=== PATIENT | female | born 1990 | race Caucasian/White ===

== ENCOUNTER 2018-11-08 21:53 | Emergency (ER) | payer OTHER ==
[2018-11-08 22:17] VITALS: O2SAT 99
--- NOTE | 2018-11-08 23:05 | ERPHSYRPT ---
- History of Present Illness Time Seen by Provider: 11/08/18 23:01 Source: patient Exam Limitations: no limitations Patient Subjective Stated Complaint: pt states sh woke up with red rash under her breasts and pain has been increasing since Triage Nursing Assessment: pt alert and oriented, answers questions approp. pt ambulatory with steady gait noted. respirations nonlabored with lungs cta. skin pink warm and dry, redness under bilat breasts with peeling to lt side. no drainage noted. Physician History: 28-year-old 1 para 0 morbidly obese white female arrives with complaint of erythematous rash which is painful underlying both breath symptoms since this morning. Past medical history is negative. Past surgical history cholecystectomy. Timing/Duration: today Severity: moderate Modifying Factors: Improves With: nothing Associated Symptoms: rash (erythematous rash underlying both breasts), No nausea , No vomiting, No abdominal pain, No shortness of breath, No heartburn, No diaphoresis, No cough, No chills, No chest pain, No fever, No headaches, No loss of appetite, No malaise, No syncope, No seizure, No weakness Allergies/Adverse Reactions: acetaminophen Allergy (Verified 11/08/18 22:19) diphenhydramine [From Benadryl] Allergy (Verified 11/08/18 22:19) Fish Containing Products Allergy (Verified 11/08/18 22:19) influenza virus vaccine qs 2018- (6 mos and up) [From Fluarix Quad 7812-3917 ( PF)] Allergy (Verified 11/08/18 22:19) Hx Tetanus, Diphtheria Vaccination/Date Given: Yes Hx Influenza Vaccination/Date Given: Yes Hx Pneumococcal Vaccination/Date Given: No Immunizations Up to Date: Yes - Review of Systems Constitutional: No Fever, No Chills Eyes: No Symptoms Ears, Nose, & Throat: No Symptoms Respiratory: No Cough, No Dyspnea Cardiac: No Chest Pain, No Edema, No Syncope Abdominal/Gastrointestinal: No Abdominal Pain, No Nausea, No Vomiting, No Diarrhea Genitourinary Symptoms: No Dysuria Musculoskeletal: No Back Pain, No Neck Pain Skin: Rash (erythematous rash underlying both breasts) Neurological: No Dizziness, No Focal Weakness, No Sensory Changes Psychological: No Symptoms Endocrine: No Symptoms All Other Systems: Reviewed and Negative - Past Medical History Pertinent Past Medical History: No - Past Surgical History Past Surgical History: Yes Neuro Surgical History: No Pertinent History Gastrointestinal: Cholecystectomy - Social History Smoking Status: Never smoker Exposure to second hand smoke: No Drug Use: none Patient Lives Alone: No - Female History Hx Now: Yes Expected Date of Delivery: 01/21/19 - Nursing Vital Signs Nursing Vital Signs: Initial Vital Signs Temperature 97.6 F 11/08/18 22:04 Pulse Rate 113 H 11/08/18 22:04 Respiratory Rate 18 11/08/18 22:04 Blood Pressure 117/74 11/08/18 22:04 O2 Sat by Pulse Oximetry 99 11/08/18 22:04 Pain Scale Pain Intensity 4 - Physical Exam General Appearance: no apparent distress, alert Eye Exam: PERRL/EOMI (Will have any pharmacie), eyes nml inspection Ears, Nose, Throat Exam: normal ENT inspection, TMs normal, pharynx normal, moist mucous membranes Neck Exam: normal inspection, non-tender, supple, full range of motion Respiratory Exam: normal breath sounds, lungs clear, No respiratory distress Cardiovascular Exam: regular rate/rhythm, normal heart sounds, normal peripheral pulses Gastrointestinal/Abdomen Exam: soft (were noted to have an ov), normal bowel sounds, No tenderness, No mass Back Exam: normal inspection, normal range of motion, No CVA tenderness, No vertebral tenderness Extremity Exam: normal inspection, normal range of motion, pelvis stable Neurologic Exam: alert, oriented x 3, cooperative, normal mood/affect, nml cerebellar function, nml station & gait, sensation nml, No motor deficits Skin Exam: other (erythematous rash underlying both breasts) SpO2 Interpretation: normal (99%) SpO2: 99 Oxygen Delivery: Room Air - Course Nursing assessment & vital signs reviewed: Yes Ordered Tests: Active Orders 24 hr Category Date Time Status Heart Tones-ED STAT Care 11/08/18 22:56 Active - Progress Progress: improved Progress Note: 11/08/18 23:03 28-year-old white female 1 para 0 arrives with complaint of an erythematous rash underlying both breasts symptoms since today. She states the rash is painful. She denies any other complaints she denies any history of diabetes. Patient is 29 weeks estimated gestational age. Patient appears be stable vitals are stable she states she is feeling movement. Will have nurse is do heart tones. Patient will need to use Monistat-Derm cream to the area twice a day for 7 days. She is to follow-up with her family doctor/[facility] physician if symptoms are worse no better in 24-48 hours or persist longer than 72 hours. She is to return for acute distress or for severe symptoms. 11/08/18 23:19 heart tones checked by nurse [id number] - Departure Time of Disposition: 23:08 Departure Disposition: Home Clinical Impression: Nallely albicans infection Condition: Fair Critical Care Time: No Referrals: ALDAIR CASTRO [Primary Care Provider] - Additional Instructions: Return home. Monistat-Derm cream apply to area twice a day for 7 days. Follow-up with your [facility]/family physician. Call tomorrow if not improving. Return for acute distress or for severe symptoms.
[2018-11-08 23:27] VITALS: BP 108/62; PULSE 102
== END 2018-11-08 23:25 | disposition home or self-care (01) ==
LOC: ED 21:53
DX: O98.813 Other maternal infectious and parasitic diseases complicating pregnancy, third trimester (principal); Z3A.29 29 weeks gestation of pregnancy
CPT/HCPCS: 99283

== ENCOUNTER 2020-06-06 20:26 | Emergency (ER) | payer OTHER ==
[2020-06-06] MEDS ORDERED: TORAdol 30 mg Injection IM ONE (20:47)
[2020-06-06 20:48] VITALS: O2SAT 98
[2020-06-06] MEDS ORDERED: Rocephin 1000 MG INJ IM ONE (20:48)
[2020-06-06] MEDS ORDERED: Rocephin 1000 MG INJ ONE (20:51)
[2020-06-06] MEDS ORDERED: XYLOCAINE 1% HCL 20 ML MDV ONE (20:51)
[2020-06-06] MEDS ORDERED: TORAdol 30 mg Injection ONE (20:51)
--- NOTE | 2020-06-06 20:54 | ERPHSYRPT ---
- History of Present Illness Time Seen by Provider: 06/06/20 20:31 Source: patient Exam Limitations: no limitations Patient Subjective Stated Complaint: "I have an infected tooth and the pain is just unbearable." Per pt, she has a dentist appointment set for . Triage Nursing Assessment: Pt presented alert et oriented and crying. Pt reported having two infected teeth and currently on penicillin. Pt reported severe pain to the upper left jaw. Pt described the pain as constant throbbing with intermittent increase in severity. Pt with noted abscess to the upper left molar and foul smelling exudate. Pupils 3mm brisk reaction. Oral mucosa pink/moist. Neck supple non-tender without palpable lymphadenopathy. Tenderness noted to palpation of the left zygomatic arch. Pt denied nausea/vomiting/diarrhea. Radial pulses equal bilateral. Physician History: 29 yo wf w dental pain x 1wk. Pain is 10 on scale. She was seen in UC 2 days ago and started on PCN. Timing/Duration: gradual onset Severity: severe ENT Location: dental Prearrival Treatment: prescription meds Modifying Factors: Improves With: nothing Associated Symptoms: facial pain/swelling, jaw pain, tooth pain, voice change, No ear pain (R), No ear pain (L), No cough, No fever, No chills, No change in hearing, No dizziness, No drooling, No ear drainage, No headache, No hearing loss, No malaise, No motion sickness, No nasal congestion/drainage, No epistaxis, No nasal foreign body, No neck pain, No poor fluid intake, No poor solids intake, No ringing of ears, No swollen glands, No sinus infection, No sore throat, No difficulty swallowing Allergies/Adverse Reactions: acetaminophen Allergy (Verified 06/06/20 20:30) diphenhydramine [From Benadryl] Allergy (Verified 06/06/20 20:30) Fish Containing Products Allergy (Verified 06/06/20 20:30) influenza virus vaccine qs 2018- (6 mos and up) [From Fluarix Quad 7762-6408 (PF)] Allergy (Verified 06/06/20 20:30) Home Medications: Buspirone HCl [Buspar] 1 tab PO DAILY 06/06/20 [History] Cholecalciferol (Vitamin D3) [Vitamin D3] 1 cap PO DAILY 06/06/20 [History] Simvastatin 1 tab PO DAILY 06/06/20 [History] Hx Tetanus, Diphtheria Vaccination/Date Given: No Hx Influenza Vaccination/Date Given: Yes Hx Pneumococcal Vaccination/Date Given: No Travel Risk - International Travel Have you traveled outside of the country in past 3 weeks: No - Coronavirus Screening Are you exhibiting any of the following symptoms?: No Close contact with a COVID-19 positive Pt in past 14-21 Days: No - Review of Systems Constitutional: No Symptoms Eyes: No Symptoms Respiratory: No Symptoms Cardiac: No Symptoms Abdominal/Gastrointestinal: No Symptoms Genitourinary Symptoms: No Symptoms Musculoskeletal: No Symptoms Skin: No Symptoms Neurological: No Symptoms Psychological: No Symptoms Endocrine: No Symptoms Hematologic/Lymphatic: No Symptoms Immunological/Allergic: No Symptoms - Past Medical History Pertinent Past Medical History: Yes Psycho-Social History: Anxiety, Depression - Past Surgical History Past Surgical History: Yes Neuro Surgical History: No Pertinent History Cardiac: No Pertinent History Respiratory: No Pertinent History Gastrointestinal: Cholecystectomy Genitourinary: No Pertinent History Musculoskeletal: No Pertinent History Female Surgical History: No Pertinent History - Social History Smoking Status: Current some day smoker Exposure to second hand smoke: No Drug Use: none Patient Lives Alone: No Significant Family History: no pertinent family hx - Female History Hx Last Menstrual Period: 05/30/20 Hx Now: No - Nursing Vital Signs Nursing Vital Signs: Initial Vital Signs Temperature 98.8 F 06/06/20 20:26 Pulse Rate 98 H 06/06/20 20:26 Respiratory Rate 20 06/06/20 20:26 Blood Pressure 150/115 06/06/20 20:26 O2 Sat by Pulse Oximetry 98 06/06/20 20:26 Pain Scale Pain Intensity 4 - Physical Exam General Appearance: no apparent distress (Pain) Eye Exam: bilateral eye: normal inspection, PERRL, EOMI Ear Exam: bilateral ear: auricle normal, canal normal, TM normal Nasal Exam: normal inspection Throat Exam: pharynx normal, dental tenderness (L superior 2nd molar and R inferior 2nd molar TTP/3rd molars on both sides impacted) Neck Exam: normal inspection, non-tender, supple, full range of motion, trachea midline Cardiovascular/Respiratory Exam: normal breath sounds, regular rate/rhythm, heart sounds normal Neurologic Exam: alert, oriented x 3, cooperative, normal mood/affect, sensation nml Skin Exam: normal color, warm, dry SpO2 Interpretation: normal SpO2: 98 O2 Delivery: Room Air - Course Nursing assessment & vital signs reviewed: Yes Ordered Tests: Medication Summary Discontinued Medications Generic Name Dose Route Start Last Admin Trade Name Moises PRN Reason Stop Dose Admin Ceftriaxone Sodium 1,000 mg 06/06/20 20:48 06/06/20 20:54 Rocephin 1000 Mg Inj IM 06/06/20 20:49 1,000 mg STAT ONE Administration Ceftriaxone Sodium Confirm 06/06/20 20:51 Rocephin 1000 Mg Inj Administered 06/06/20 20:52 Dose 1,000 mg .ROUTE .STK-MED ONE Ketorolac Tromethamine 60 mg 06/06/20 20:47 06/06/20 20:53 Toradol 30 Mg Injection IM 06/06/20 20:48 60 mg STAT ONE Administration Ketorolac Tromethamine Confirm 06/06/20 20:51 Toradol 30 Mg Injection Administered 06/06/20 20:52 Dose 60 mg .ROUTE .STK-MED ONE Lidocaine HCl Confirm 06/06/20 20:51 Xylocaine 1% Hcl 20 Ml Mdv Administered 06/06/20 20:52 Dose 3 ml .ROUTE .STK-MED ONE - Progress Progress: improved Progress Note: 06/06/20 20:53 60mg IM toradol/1gm IM rocephin Counseled pt/family regarding: diagnosis, need for follow-up - Departure Departure Disposition: Home Clinical Impression: Pain, dental Condition: Stable Critical Care Time: No Referrals: ALDAIR CASTRO [Primary Care Provider] - Instructions: Tooth Abscess (DC), Dental Pain (DC) Additional Instructions: Follow up with dentist [facility] Vicoprofen as needed for pain Continue with penicillin Prescriptions: Hydrocodon/Ibupr 7.5mg/200mg [Vicoprofen 7.5mg/200mg Tablet] 1 tab PO Q4- 6HPRN PRN #6 tablet MDD 4 tabs PRN Reason: Pain
[2020-06-06 21:30] VITALS: BP 148/88; PULSE 90
== END 2020-06-06 21:28 | disposition home or self-care (01) ==
LOC: ED 20:26
DX: K08.89 Other specified disorders of teeth and supporting structures (principal)
CPT/HCPCS: 96372; 99284; J0696; J1885

== ENCOUNTER 2020-06-19 13:05 | Emergency (ER) | payer OTHER ==
[2020-06-19 13:36] VITALS: BP 139/78; PULSE 93; O2SAT 99
--- NOTE | 2020-06-19 13:41 | ERPHSYRPT ---
- History of Present Illness Time Seen by Provider: 06/19/20 13:37 Source: patient Exam Limitations: no limitations Patient Subjective Stated Complaint: toothache on upper R side Triage Nursing Assessment: pt to ED c/o r upper tooth ache and infection in teeth. has been seen in ED and at dentist for same, was taking abx with full relief, now has run out and pain has returned. pain is intermittent, now 0/10 pain. some swelling noted to R side. no diff breathing or swolllowing reported. Physician History: toothache on upper R side for 2 weeks,Scheduled for oral surgery on jun 29 /o r upper tooth ache and infection in teeth. has been seen in ED and at dentist for same, was taking abx with full relief, now has run out and pain has returned. pain is intermittent, now 0/10 pain. some swelling noted to R side. no diff breathing or swolllowing reported. Timing/Duration: week(s) Severity: moderate Associated Symptoms: denies symptoms Allergies/Adverse Reactions: acetaminophen Allergy (Verified 06/06/20 20:30) diphenhydramine [From Benadryl] Allergy (Verified 06/06/20 20:30) Fish Containing Products Allergy (Verified 06/06/20 20:30) influenza virus vaccine qs 2018- (6 mos and up) [From Fluarix Quad 8739-6295 (PF)] Allergy (Verified 06/06/20 20:30) Home Medications: Buspirone HCl [Buspar] 1 tab PO DAILY 06/06/20 [History] Cholecalciferol (Vitamin D3) [Vitamin D3] 1 cap PO DAILY 06/06/20 [History] Simvastatin 1 tab PO DAILY 06/06/20 [History] Hx Tetanus, Diphtheria Vaccination/Date Given: No (unknown) Hx Influenza Vaccination/Date Given: Yes Hx Pneumococcal Vaccination/Date Given: No Travel Risk - International Travel Have you traveled outside of the country in past 3 weeks: No - Coronavirus Screening Are you exhibiting any of the following symptoms?: No Close contact with a COVID-19 positive Pt in past 14-21 Days: No - Review of Systems Constitutional: No Symptoms Eyes: No Symptoms Ears, Nose, & Throat: Mouth Swelling, Loose Teeth Respiratory: No Symptoms Cardiac: No Symptoms Abdominal/Gastrointestinal: No Symptoms Genitourinary Symptoms: No Symptoms Musculoskeletal: No Symptoms - Past Medical History Pertinent Past Medical History: Yes Psycho-Social History: Anxiety, Depression - Past Surgical History Past Surgical History: Yes Neuro Surgical History: No Pertinent History Cardiac: No Pertinent History Respiratory: No Pertinent History Gastrointestinal: Cholecystectomy Genitourinary: No Pertinent History Musculoskeletal: No Pertinent History Female Surgical History: No Pertinent History - Social History Smoking Status: Current some day smoker Exposure to second hand smoke: No Drug Use: none Patient Lives Alone: No Significant Family History: no pertinent family hx - Female History Hx Now: No - Nursing Vital Signs Nursing Vital Signs: Initial Vital Signs Temperature 98.1 F 06/19/20 13:30 Pulse Rate 93 H 06/19/20 13:30 Respiratory Rate 17 06/19/20 13:30 Blood Pressure 139/78 06/19/20 13:30 O2 Sat by Pulse Oximetry 99 06/19/20 13:30 Pain Scale Pain Intensity 0 - Physical Exam General Appearance: no apparent distress Eye Exam: PERRL/EOMI Ears, Nose, Throat Exam: normal ENT inspection, other (tooth abscess) Neck Exam: normal inspection Respiratory Exam: normal breath sounds Cardiovascular Exam: regular rate/rhythm Gastrointestinal/Abdomen Exam: soft SpO2: 99 - Course Nursing assessment & vital signs reviewed: Yes - Progress Progress: pain not gone completely Counseled pt/family regarding: diagnosis, need for follow-up (with dentist) - Departure Departure Disposition: Home Clinical Impression: Dental abscess Condition: Good Critical Care Time: No Referrals: ALDAIR CASTRO [Primary Care Provider] - (follow up with Dentist EDMOND) Instructions: Tooth Abscess (DC), Tooth Decay, Adult (DC), Dental Pain (DC) Prescriptions: Cephalexin Mh 500 mg [Keflex 500 mg] 500 mg PO Q6H #40 capsule Naproxen 375 mg [Naprosyn 375 mg] 375 mg PO Q8H #30 tablet
== END 2020-06-19 13:54 | disposition home or self-care (01) ==
LOC: ED 13:05
DX: K04.7 Periapical abscess without sinus (principal)
CPT/HCPCS: 99283

== ENCOUNTER 2022-10-06 11:47 | Emergency (ER) | payer OTHER ==
[2022-10-06] MEDS ORDERED: ZOFRAN ODT 4 MG PO ONE (12:25)
--- NOTE | 2022-10-06 12:25 | ERPHSYRPT ---
- History of Present Illness Time Seen by Provider: 10/06/22 12:20 Source: patient, family Exam Limitations: no limitations Physician History: Pt sent from [facility] today. Feeling weak and having aching myalgias and fever today of 100.7. Nausea. No vomiting. chest clear. Ht regular without murmur. no rash. Abd soft nontender without peritineal signs or masses. Not SOBreath. Neuro exam normal fundi benign. TM with fluid bilaterally and few nodes - no meningismis. Pharynx with erythema. swallowing in ER OK. Timing/Duration: today Cough Quality/Degree: mild, dry cough Possible Cause: no prior episodes Modifying Factors: Improves With: nothing Associated Symptoms: fever Allergies/Adverse Reactions: acetaminophen Allergy (Verified 06/19/20 13:37) ciprofloxacin [From Cipro] Allergy (Verified 10/06/22 12:27) diphenhydramine [From Benadryl] Allergy (Verified 06/19/20 13:37) Fish Containing Products Allergy (Verified 06/19/20 13:37) influenza virus vaccine qs 2018- (6 mos and up) [From Fluarix Quad 2756-0039 (PF)] Allergy (Verified 06/19/20 13:37) Home Medications: Buspirone HCl [Buspar] 1 tab PO DAILY 06/06/20 [History] Cholecalciferol (Vitamin D3) [Vitamin D3] 1 cap PO DAILY 06/06/20 [History] Simvastatin 1 tab PO DAILY 06/06/20 [History] Hx Tetanus, Diphtheria Vaccination/Date Given: No (unknown) Hx Influenza Vaccination/Date Given: Yes Hx Pneumococcal Vaccination/Date Given: No - Review of Systems Constitutional: Fever, No Chills Eyes: No Symptoms Ears, Nose, & Throat: Ear Pain Respiratory: Cough, No Dyspnea, No Stridor, No Wheezing Cardiac: No Chest Pain, No Edema, No Syncope Abdominal/Gastrointestinal: Nausea, No Abdominal Pain, No Vomiting, No Diarrhea Genitourinary Symptoms: No Dysuria Musculoskeletal: No Back Pain, No Neck Pain Skin: No Symptoms, No Rash Neurological: No Dizziness, No Focal Weakness, No Sensory Changes Psychological: No Symptoms Endocrine: No Symptoms Hematologic/Lymphatic: No Symptoms Immunological/Allergic: No Symptoms All Other Systems: Reviewed and Negative - Past Medical History Pertinent Past Medical History: Yes Psycho-Social History: Anxiety, Depression - Past Surgical History Past Surgical History: Yes Neuro Surgical History: No Pertinent History Cardiac: No Pertinent History Respiratory: No Pertinent History Gastrointestinal: Cholecystectomy Genitourinary: No Pertinent History Musculoskeletal: No Pertinent History Female Surgical History: No Pertinent History - Social History Smoking Status: Current some day smoker Exposure to second hand smoke: No Drug Use: none Patient Lives Alone: No Significant Family History: no pertinent family hx - Nursing Vital Signs Nursing Vital Signs: Initial Vital Signs Temperature 100.7 F 10/06/22 12:27 Pulse Rate 129 H 10/06/22 12:27 Respiratory Rate 20 10/06/22 12:27 Blood Pressure 128/82 10/06/22 12:27 O2 Sat by Pulse Oximetry 97 10/06/22 12:27 Pain Scale Pain Intensity 5 - Physical Exam General Appearance: no apparent distress, alert Eye Exam: PERRL/EOMI, eyes nml inspection Ears, Nose, Throat Exam: moist mucous membranes, TM abnormal (R), TM abnormal (L), pharyngeal erythema Neck Exam: normal inspection, non-tender, supple, full range of motion, lymphadenopathy, No meningismus, No Brudzinski, No Kernig's Respiratory Exam: normal breath sounds, lungs clear, No respiratory distress, No accessory muscle use, No rhonchi, No wheezing, No stridor Cardiovascular Exam: regular rate/rhythm, normal heart sounds Gastrointestinal/Abdomen Exam: soft, No tenderness Pelvic Exam: deferred Rectal Exam: deferred Back Exam: normal inspection, No CVA tenderness, No vertebral tenderness Extremity Exam: normal inspection, normal range of motion Neurologic Exam: alert, oriented x 3, cooperative, normal mood/affect, sensation nml, No motor deficits Skin Exam: normal color, warm, dry, No rash Lymphatic Exam: No adenopathy SpO2 Interpretation: normal SpO2: 98 O2 Delivery: Room Air - Course Nursing assessment & vital signs reviewed: Yes Ordered Tests: Active Orders 24 hr Category Date Time Status PO Fluid Challenge STAT Care 10/06/22 12:26 Active Medication Summary Discontinued Medications Generic Name Dose Route Start Last Admin Trade Name Freq PRN Reason Stop Dose Admin Amoxicillin 500 mg 10/06/22 13:00 10/06/22 13:19 Amoxicillin Trihydrate 500 Mg Capsule PO 10/06/22 13:01 500 mg STAT ONE Administration Amoxicillin Confirm 10/06/22 13:18 Amoxicillin Trihydrate 500 Mg Capsule Administered 10/06/22 13:19 Dose 500 mg .ROUTE .STK-MED ONE Ibuprofen 400 mg 10/06/22 13:17 10/06/22 13:19 Ibuprofen 400 Mg Tablet PO 10/06/22 13:18 400 mg STAT ONE Administration Ibuprofen Confirm 10/06/22 13:18 Ibuprofen 400 Mg Tablet Administered 10/06/22 13:19 Dose 400 mg .ROUTE .STK-MED ONE Ondansetron HCl 4 mg 10/06/22 12:25 10/06/22 12:34 Zofran 4 Mg/Udtablet Orally Disintegrating PO 10/06/22 12:26 4 mg STAT ONE Administration Ondansetron HCl Confirm 10/06/22 12:33 Zofran 4 Mg/Udtablet Orally Disintegrating Administered 10/06/22 12:34 Dose 4 mg .ROUTE .STK-MED ONE Lab/Rad Data: Laboratory Results 10/06/22 Range/Units 12:05 Influenza Type A Ag NEGATIVE (NEGATIVE) Influenza Type B Ag NEGATIVE (NEGATIVE) RSV (PCR) NEGATIVE (Negative) SARS-CoV-2 (PCR) POSITIVE A (NEGATIVE) - Progress Progress: improved, re-examined Air Movement: good Progress Note: 10/06/22 13:58 discussed with pt and family and she feels better to go home and will return if not improving. 10/06/22 13:59 HR now in 90s. Blood Culture(s) Obtained: No Antibiotics given: No Counseled pt/family regarding: lab results, diagnosis, need for follow-up - Departure Departure Disposition: Home Clinical Impression: COVID-19 Condition: Good Critical Care Time: No Referrals: ALDAIR CASTRO [Primary Care Provider] - Follow up/PCP as directed Instructions: COVID-19 (DC) Additional Instructions: you have Covid 19 and will need to self-quarantine until resolved. drink plenty of fluids and rest. Follow-up with your Dr. There are increased risks for further complications , such as blood clots or respiratory problems , so return meantime if not improving, short of breath, vomiting, or other concerns. Prescriptions: Ondansetron ODT 4 MG [Zofran Odt 4 mg] 4 mg PO Q6H PRN PRN #7 tablet PRN Reason: Nausea
[2022-10-06 12:32] VITALS: O2SAT 98
[2022-10-06] MEDS ORDERED: ZOFRAN ODT 4 MG ONE (12:33)
[2022-10-06 12:52] LABS: INFLUENZA A NEGATIVE (NEGATIVE); INFLUENZA B NEGATIVE (NEGATIVE); RESPIRATORY SYNCTIAL VIRUS NEGATIVE (Negative)
[2022-10-06] MEDS ORDERED: AMOXIL 500 MG PO ONE (13:00)
[2022-10-06] MEDS ORDERED: MOTRIN 400 MG PO ONE (13:17)
[2022-10-06] MEDS ORDERED: AMOXIL 500 MG ONE (13:18)
[2022-10-06] MEDS ORDERED: MOTRIN 400 MG ONE (13:18)
[2022-10-06 13:20] LABS: SARS-CoV-2 Xpert Express POSITIVE (NEGATIVE)
[2022-10-06 13:58] VITALS: BP 135/82; PULSE 110
== END 2022-10-06 14:15 | disposition home or self-care (01) ==
LOC: ED 11:47
DX: U07.1 COVID-19 (principal); R50.9 Fever, unspecified; R53.1 Weakness; M79.10 Myalgia, unspecified site; R11.0 Nausea; Z79.899 Other long term (current) drug therapy; Z72.0 Tobacco use
CPT/HCPCS: 0241U; 99283; Q0162; A9270-GY

== ENCOUNTER 2025-01-19 15:57 | Emergency (ER) | payer OTHER ==
--- NOTE | 2025-01-19 16:01 | ERPHSYRPT ---
- History of Present Illness Time Seen by Provider: 01/19/25 16:01 Source: patient, family Exam Limitations: no limitations Physician History: This is a 34-year-old morbidly obese white female patient arrives by private vehicle with a complaint of fatigue, weakness and fever as well as muscle aches and pains intermittently for the last 2 days. Patient had a low-grade fever today so she took ibuprofen. Patient states she is allergic to acetaminophen which gives her a rash. Patient's son has similar symptoms. Patient has a history of anxiety, hyperlipidemia and depression. She states she also has some left ear pressure. Timing/Duration: day(s) (Last couple of days) Severity: mild Associated Symptoms: cough, weakness, No vomiting, No abdominal pain, No shortness of breath, No chest pain Allergies/Adverse Reactions: acetaminophen Allergy (Verified 06/19/20 13:37) ciprofloxacin [From Cipro] Allergy (Verified 10/06/22 12:27) diphenhydramine [From Benadryl] Allergy (Verified 06/19/20 13:37) Fish Containing Products Allergy (Verified 06/19/20 13:37) influenza virus vaccine qs 2018- (6 mos and up) [From Fluarix Quad [id number] (PF)] Allergy (Verified 06/19/20 13:37) Home Medications: Buspirone HCl [Buspar] 1 tab PO DAILY 06/06/20 [History] Cholecalciferol (Vitamin D3) [Vitamin D3] 1 cap PO DAILY 06/06/20 [History] Simvastatin 1 tab PO DAILY 06/06/20 [History] Hx Tetanus, Diphtheria Vaccination/Date Given: No (unknown) Hx Influenza Vaccination/Date Given: Yes Hx Pneumococcal Vaccination/Date Given: No Travel Risk - International Travel Have you traveled outside of the country in past 3 weeks: No - Emerging Infectious Disease Are you exhibiting symptoms associated with any current EIDs: No - Review of Systems Constitutional: Fever, Weakness Eyes: No Symptoms Ears, Nose, & Throat: Ear Pain (Left ear ache that is mild) Respiratory: No Symptoms, Cough Cardiac: No Symptoms Abdominal/Gastrointestinal: Nausea, No Abdominal Pain, No Vomiting, No Diarrhea, No Constipation, No Appetite Changes Genitourinary Symptoms: No Symptoms Musculoskeletal: No Symptoms Skin: No Symptoms Neurological: No Symptoms Psychological: No Symptoms Endocrine: No Symptoms Hematologic/Lymphatic: No Symptoms Immunological/Allergic: No Symptoms All Other Systems: Reviewed and Negative - Past Medical History Pertinent Past Medical History: Yes Psycho-Social History: Anxiety, Depression - Past Surgical History Past Surgical History: Yes Neuro Surgical History: No Pertinent History Cardiac: No Pertinent History Respiratory: No Pertinent History Gastrointestinal: Cholecystectomy Genitourinary: No Pertinent History Musculoskeletal: No Pertinent History Female Surgical History: No Pertinent History Significant Family History: no pertinent family hx - Social History Smoking Status: Current some day smoker Exposure to second hand smoke: No Drug Use: none Patient Lives Alone: No - Nursing Vital Signs Nursing Vital Signs: Initial Vital Signs Temperature 99.3 F 01/19/25 16:11 Pulse Rate 120 H 01/19/25 16:11 Respiratory Rate 22 01/19/25 16:11 Blood Pressure 126/95 01/19/25 16:11 O2 Sat by Pulse Oximetry 96 01/19/25 16:11 Pain Scale Pain Intensity 0 - Physical Exam General Appearance: no apparent distress, alert, anxiety, obese Eye Exam: PERRL/EOMI, eyes nml inspection Ears, Nose, Throat Exam: pharynx normal, moist mucous membranes, other (Left tympanic membrane is slightly bulging but not red and not cloudy) Neck Exam: normal inspection, non-tender, supple, full range of motion Respiratory Exam: normal breath sounds, lungs clear, airway intact, No chest tenderness, No respiratory distress Cardiovascular Exam: tachycardia Gastrointestinal/Abdomen Exam: soft, normal bowel sounds, No tenderness Pelvic Exam: not done Rectal Exam: not done Back Exam: normal inspection, normal range of motion, No CVA tenderness, No vertebral tenderness Extremity Exam: normal inspection, normal range of motion, pelvis stable Neurologic Exam: alert, oriented x 3, cooperative, brattice builder II-XII nml as tested, nml cerebellar function, nml station & gait, sensation nml Skin Exam: normal color, warm, dry Lymphatic Exam: No adenopathy SpO2 Interpretation: normal O2 Delivery: Room Air - Course Nursing assessment & vital signs reviewed: Yes Ordered Tests: Medication Summary Discontinued Medications Generic Name Dose Route Start Last Admin Trade Name Freq PRN Reason Stop Dose Admin Ondansetron HCl 4 mg 01/19/25 17:33 Zofran 4 Mg/Udtablet Orally Disintegrating PO 01/19/25 17:34 STAT ONE Lab/Rad Data: Laboratory Results 01/19/25 Range/Units 16:32 Influenza Type A Ag POSITIVE A (NEGATIVE) Influenza Type B Ag NEGATIVE (NEGATIVE) RSV (PCR) NEGATIVE (NEGATIVE) SARS-CoV-2 (PCR) NEGATIVE (NEGATIVE) - Progress Progress: unchanged, re-examined Progress Note: 01/19/25 17:38 My medical decision making of the assignment of low complexity to this patient's medical issue is based on review of the patient's past medical history, reviewed the patient's medication list, reviewed patient drug allergy list, history present illness and physical findings on examination. The workup in this patient includes viral swabs and group A strep test. Differential diagnosis includes but is not limited to viral illness, group A strep pharyngitis, left otitis media Counseled pt/family regarding: lab results, diagnosis, need for follow-up Medical Desision Making - Diagnostic Testing Diagnostic test were ordered, analyzed, and reviewed by me: Yes - Risk of complications Low Risk: Low risk of morbidity from additional dx testing or treatment - Departure Departure Disposition: Home Clinical Impression: Influenza A H1N1 infection Condition: Stable Critical Care Time: No Referrals: ALDAIR CASTRO [Primary Care Provider] - Follow up/PCP as directed Additional Instructions: Drink plenty of clear liquids. Take ibuprofen 600 mg orally with food 3 times a day for the next 5 days. Take your Tamiflu and Zofran prescriptions as prescribed. Call your primary care provider tomorrow, 01/20/2025, to make arrangements for follow-up appointment for further evaluation management Prescriptions: Ondansetron ODT 4 MG [Zofran Odt 4 mg] 4 mg PO Q6H PRN PRN #10 tablet PRN Reason: Vomiting Oseltamivir 75 mg [Tamiflu 75MG Capsule] 75 mg PO BID #10 cap
[2025-01-19 16:15] VITALS: TEMP 99.3
[2025-01-19 17:18] LABS: INFLUENZA B NEGATIVE (NEGATIVE); RESPIRATORY SYNCTIAL VIRUS NEGATIVE (NEGATIVE); SARS-CoV-2 Xpert Express NEGATIVE (NEGATIVE)
[2025-01-19 17:20] LABS: INFLUENZA A POSITIVE (NEGATIVE)
[2025-01-19 17:29] VITALS: RESP 20; O2SAT 98
[2025-01-19] MEDS ORDERED: ZOFRAN ODT 4 MG ONE (18:00)
[2025-01-19] MEDS: ZOFRAN ODT 4 MG PO ONE (18:07)
[2025-01-19 18:14] VITALS: BP 128/82; PULSE 99
== END 2025-01-19 18:26 | disposition home or self-care (01) ==
LOC: ED 15:57
DX: J10.1 Influenza due to other identified influenza virus with other respiratory manifestations (principal); R50.9 Fever, unspecified; R53.83 Other fatigue; R53.1 Weakness; M79.10 Myalgia, unspecified site; E78.5 Hyperlipidemia, unspecified; Z79.899 Other long term (current) drug therapy; Z72.0 Tobacco use
CPT/HCPCS: 0241U; 99284; 99283; Q0162